=== PATIENT | female | born 1930 | race Caucasian/White ===

== ENCOUNTER 2018-06-23 12:41 | Outpatient (CLI) | payer MEDICARE, OTHER ==
--- NOTE | 2018-06-23 14:00 | RAD ---
CHEST TWO VIEWS: History: Dyspnea. FINDINGS: No comparison. Cardiac silhouette is unremarkable. Right hemidiaphragm is elevated. Pulmonary vascula ture upper limits of normal. Mediastinum midline with aortic calcification. No lobar consolidation or evidence of pneumothorax. IMPRESSION: 1. Atherosclerosis. 2. Right hemidiaphragm elevation, cause not apparent. POS: [facility]
== END 2018-06-23 12:42 | disposition home or self-care (01) ==
LOC: RAD 12:41
PROVIDERS: ATTEND Internal Medicine Critical Care Medicine
DX: R06.00 Dyspnea, unspecified (principal); I70.90 Unspecified atherosclerosis; Q79.1 Other congenital malformations of diaphragm
CPT/HCPCS: 71046

== ENCOUNTER 2018-07-07 18:00 | Outpatient (CLI) | payer MEDICARE | END 2018-07-07 18:01 | disposition home or self-care (01) | LOC: SLEEPLAB 18:00 | PROVIDERS: ATTEND Internal Medicine Critical Care Medicine | DX: G47.33 Obstructive sleep apnea (adult) (pediatric) (principal); R53.83 Other fatigue; Z68.41 Body mass index [BMI] 40.0-44.9, adult | CPT/HCPCS: 95806 ==

== ENCOUNTER 2018-07-24 20:30 | Outpatient (CLI) | payer MEDICARE | END 2018-07-24 20:31 | disposition home or self-care (01) | LOC: SLEEPLAB 20:30 | PROVIDERS: ATTEND Internal Medicine Critical Care Medicine | DX: G47.33 Obstructive sleep apnea (adult) (pediatric) (principal); R53.83 Other fatigue | CPT/HCPCS: 95811 ==

== ENCOUNTER 2018-08-03 14:03 | Outpatient (CLI) | payer MEDICARE ==
--- NOTE | 2018-08-03 15:12 | CT ---
CT OF CHEST PERFORMED WITHOUT CONTRAST ENHANCEMENT: HISTORY: Pulmonary fibrosis. COMPARISON: An chest x-ray. FINDINGS: The lungs are clear of any infiltrative process. Some minimal interstitial change in the bases, whic h is more peripheral and is felt to represent scar. I do not appreciate any bronchiectatic change. There is no evidence for honeycombing. There is a slight mosaic pattern to the lung which would sugg est an element of air trapping. No significant mediastinal adenopathy is appreciated. There are moderate coronary artery calcificati ons. Gallstones are incidentally seen. Colonic diverticulosis is also incidentally noted. Hypodensities within the liver are statistically most likely small cysts. Right and left adrenal glands are normal . IMPRESSION: 1. Fairly minimal more peripheral interstitial lung change which appears to be chronic in nature. N o bronchiectatic change or any type of honeycombing or bullous change. 2. Gallstones. 3. Moderate coronary artery calcifications. POS: [facility]
== END 2018-08-03 14:04 | disposition home or self-care (01) ==
LOC: CT 14:03
PROVIDERS: ATTEND Internal Medicine Critical Care Medicine
DX: J84.10 Pulmonary fibrosis, unspecified (principal); R09.02 Hypoxemia; G47.33 Obstructive sleep apnea (adult) (pediatric); K80.60 Calculus of gallbladder and bile duct with cholecystitis, unspecified, without obstruction; I25.10 Atherosclerotic heart disease of native coronary artery without angina pectoris
CPT/HCPCS: 71250; 94060; 94727; 94729

== ENCOUNTER 2019-07-22 08:32 | Emergency (ER) | payer MEDICARE ==
[2019-07-22 09:53] LABS: #Basophils 0.1 thou/uL (0.0-0.2); #Lymphocytes 0.8 thou/uL (1.20-3.40); #Neutrophils 8.6 thou/uL (1.40-6.50); %Basophils 0.6 % (0.0-1.0); %Eosinophils 0.5 % (0.0-10.0); %Lymphocytes 7.7 % (21.0-51.0); %Monocytes 9.1 % (0.0-10.0); %Neutrophils 82.2 % (42.0-75.0); Hemoglobin 14.8 g/dL (12.0-16.0); Mean Corpuscular HGB CONC 33.4 g/dL (32.0-36.0); Mean Corpuscular Volume 92.9 fL (78.0-98.0); Platelet Count 221 thou/uL (130-400); RBC Distribution Width 13.8 % (11.5-14.5); Red Blood Cell (RBC) Count 4.77 mill/uL (4.20-5.40); White Blood Cell (WBC) Count 10.4 thou/uL (4.8-10.8)
--- NOTE | 2019-07-22 09:54 | RAD ---
EXAM: Right ankle: 3 views INDICATIONS: Ankle pain COMPARISON: None. FINDINGS: Prominent edema at the ankle. No evidence of fracture. Enthesophyte from the plantar calcan eus. Mild degenerative change at the ankle. IMPRESSION: Prominent lower extremity edema. No acute osseous abnormality.
[2019-07-22 10:06] LABS: Anion Gap 19 mmol/L (10-20); BUN (Urea Nitrogen) 23 mg/dL (9.8-20.1); Calc. Creatinine Clearance 0 mL/min (70-130); Calcium 9.8 mg/dL (7.8-10.44); Carbon Dioxide 25 mmol/L (23-31); Chloride 102 mmol/L (98-107); Estimated GFR-MDRD 39; Glucose 159 mg/dL (83-110); Potassium 3.8 mmol/L (3.5-5.1); Sodium 142 mmol/L (136-145)
--- NOTE | 2019-07-22 10:37 | ULT ---
EXAM: Right lower extremity venous duplex: Deep veins evaluated with color Doppler, spectral analysis, and compression. INDICATIONS: Right lower extremity pain and edema. FINDINGS: Deep veins interrogated include common femoral vein, femoral vein, popliteal vein, and post erior tibial vein. These veins show normal compression and blood flow. No evidence of DVT. Subcutaneous edema is noted at the ankle. IMPRESSION: Negative Right venous duplex exam.
== END 2019-07-22 12:55 | disposition home or self-care (01) ==
LOC: SCSER 08:32
DX: M25.471 Effusion, right ankle (principal); I11.0 Hypertensive heart disease with heart failure; I50.9 Heart failure, unspecified; K21.9 Gastro-esophageal reflux disease without esophagitis; Z79.899 Other long term (current) drug therapy
CPT/HCPCS: 36415; 80048; 85025